=== PATIENT | male | born 1955 | race Caucasian/White ===

== ENCOUNTER 2018-03-18 13:58 | Observation (INO) ==
[2018-03-18] MEDS ORDERED: *HR* Labetalol 100 MG/20 ML MDV IVP ONE (14:40)
[2018-03-18 15:07] LABS: Basophils # 0.1 K/mcL (0.0-0.2); Basophils % 0.5 %; Eosinophils % 0.2 %; Hematocrit 43.5 % (37.5-50.1); Hemoglobin 14.9 g/dL (12.9-16.9); Immature Granulocytes % 0.4 % (0-4); Lymphocytes # 1.2 K/mcL (0.6-4.6); Lymphocytes % 10.6 %; Mean Corpuscular HGB Conc 34.3 g/dL (31.6-35.5); Mean Corpuscular Hemoglobin 33.6 pg (28.0-33.3); Monocytes # 0.8 K/mcL (0.0-1.3); Monocytes % 7.4 %; Neutrophils # 9.1 K/mcL (1.6-8.9); Platelet Count 234 K/mcL (140-400); Red Blood Count 4.44 M/mcL (4.19-5.50); Segmented Neutrophils % 80.9 %
[2018-03-18 15:15] LABS: Prothrombin Time 11.8 Seconds (9.4-12.1)
[2018-03-18 15:26] LABS: Calcium 9.3 mg/dL (8.6-10.3); Creatine Kinase 154 Units/L (30-223); Potassium 3.7 mEq/L (3.5-5.1)
--- NOTE | 2018-03-18 15:28 | Emergency Department Note ---
Disposition Clinical Impression: Hypertensive urgency, Dehydration, Acute kidney injury Disposition: Admitted As Inpatient Condition: Good Referrals: NONE,PCP [Primary Care Provider] - General Adult HPI - General Chief complaint: ED Headache Stated complaint: headache, nausea and emesis Time Seen by Provider: 03/18/18 14:06 Source: patient, family Mode of arrival: EMS Limitations: no limitations Nursing Notes Reviewed: Yes Vital Signs Reviewed: Yes - History of Present Illness HPI Narrative: Patient presents to the ED via EMS after an episode of becoming very hot, short of breath, sweating and possibly passing out at home. He had been out in the sun for approximately 4 hours watching his son work on a car. Son states he noticed that the patient's suddenly became very flushed, was sweating a lot and breathing heavy. He told him to go inside and cool off. Patient states he remembers going up to the house and laying down on the front porch. Patient's son states when he went to check on him he was no longer on the porch when he went inside he found the patient lying on the living room floor. Patient states he vaguely remembers going inside the house. He does not think that he fell and there was no furniture out of place or other signs of a fall in the home that patient states the sequence of events from the time he was outside until EMS arrived are "like a dream". Patient's son states that the patient was awake and alert when he found him inside and was complaining of "tingling and cramping" all over his body. Patient states he did feel short of breath and that his entire body was in "one big cramp". He did not have any focal chest pain. Patient currently complained of a headache on the right posterior side of his head goes down into his neck. This is been intermittent over the last 5-7 days. He rates it currently an 8-9 out of 10 and describes it as a burning pain. He states he has also had blurry vision in his right eye over the past week. Patient's son states that his blood pressure has been extremely elevated over the past 1-2 weeks as well with readings as high as 200s systolic and 100s diastolic. Patient does have a known history of high blood pressure and is currently only on lisinopril that was last prescribed by a physician during an ED visit. He does not currently have a primary care doctor. He reports chronic numbness in his right hand that has been present for many years. He underwent cervical spine surgery in September of this year and has had intermittent neck pain and headaches since then. He has not had any new injury to his neck. He denies any new numbness, tingling or weakness in his arms or his legs. He did become nauseous and vomit once just prior to transport to the ED. - Related Data Home Medications Medication Instructions Recorded Confirmed Lisinopril [Zestril] 40 mg PO DAILY 10/05/17 03/18/18 Allopurinol [Zyloprim 100 MG] 100 mg PO DAILY 03/18/18 03/18/18 Allergies Allergy/AdvReac Type Severity Reaction Status Date / Time No Known Allergies Allergy Verified 10/05/17 09:01 Constitutional: Denies: fever, chills, weakness, weight change Eyes: Reports: vision change (blurry on right). Denies: eye pain, eye discharge ENT ED: Denies: ear pain, throat pain, dental pain, hearing loss, epistaxis, congestion, dysphagia Cardiovascular: Denies: chest pain, palpitations, dyspnea on exertion, edema, syncope Respiratory: Denies: cough, dyspnea, wheezes, hemoptysis, stridor Gastrointestinal: Denies: abdominal pain, nausea, vomiting, diarrhea, constipation, hematemesis, melena, hematochezia Genitourinary: Denies: urgency, dysuria, frequency, hematuria Musculoskeletal: Reports: neck pain (chronic). Denies: back pain, arthralgia, myalgia Integumentary: Denies: rash, abrasion, lesions Neurological: Reports: as per HPI, headache, numbness (chronic, R hand). Denies : weakness, paresthesias, confusion, abnormal gait, vertigo Psychiatric: Denies: anxiety, depression, suicidal thoughts, homicidal thoughts , auditory hallucinations, visual hallucinations Endocrine: Denies: fatigue Hematological/Lymphatic: Denies: easy bleeding, easy bruising Allergic/Immunologic: Denies: facial swelling, urticaria Past Medical History - Past Medical History Medical history: Reports: arthritis, hypertension, other Surgical history: Reports: orthopedic, other Psychiatric history: Reports: no psych history - Social History Smoking Status: Current every day smoker Smokeless Tobacco Status: No Alcohol use: Reports: none Drug use: Reports: none Physical Exam - General Limitations: no limitations General appearance: alert, in no apparent distress - Head Head exam: atraumatic, normocephalic, normal inspection - Eye Eye exam: Present: normal appearance, PERRL, EOMI - ENT ENT exam: normal exam, normal oropharynx, mucous membranes moist - Neck Neck exam: Present: normal inspection, full ROM, trachea midline - Chest Chest inspection: Present: normal inspection, symmetric chest wall rise - Respiratory Respiratory exam: Present: normal lung sounds bilaterally - Cardiovascular Cardiovascular exam: Present: regular rate, normal rhythm, normal heart sounds - Abdominal Exam Abdominal exam: Present: soft, Non-Tender. Absent: tenderness, distention, guarding, rebound, rigidity - Extremities Exam Extremities exam: Present: normal inspection, full ROM, normal capillary refill. Absent: tenderness, pedal edema - Back Exam Back exam: Present: normal inspection, full ROM. Absent: tenderness - Neurological Exam Neurological exam: Present: alert, oriented X3, CN II-XII intact. Absent: motor sensory deficit - Expanded Neurological Exam Speech: Present: fluid speech Cerebellar function: finger to nose: Normal Motor strength - LUE: 5/5 Motor strength - RUE: 5/5 Motor strength - LLE: 5/5 Motor strength - RLE: 5/5 Sensory exam upper extremity: light touch: Normal Sensory exam lower extremity: light touch: Normal Coma Scale Eye Opening: Spontaneous Coma Scale Motor Response: Obeys Commands Coma Scale Verbal Response: Oriented Coma Scale Total: 15 - Psychiatric Psychiatric exam: Present: normal affect, normal mood - Skin Skin exam: Present: warm, dry, intact, normal color Course Course Narrative: Patient presents to the ED after an episode of becoming very flushed, diaphoretic and lightheaded after spending several hours outdoors. He may have experienced an unwitnessed syncopal event. He has had a chronic headache and neck pain as well recently with significantly high uncontrolled blood pressures. Physical exam including detailed neurologic exam is unremarkable but symptoms are concerning for hypertensive urgency versus emergency versus syncope versus heat exhaustion versus less likely ACS. EKG on arrival was a sinus rhythm with occasional PVCs. There are no acute changes compared to his last EKG of September 2017. We will give IV fluid bolus while checking labs as well as CT of head and neck given his report of pain, blurry vision and hypertension. We will give a dose of labetalol for his acute hypertension. - Reevaluation(s) Reevaluation #1: Laboratory stay showed a nonspecific leukocytosis. Electrolytes are normal. Creatinine is elevated from his last laboratory studies several months ago. Troponin and CK are both normal. CT scan of cervical spine shows only degenerative and postsurgical changes. CT of the head shows no acute abnormalities. Blood pressure did respond mildly to the labetalol but still remains elevated. Given his acute kidney injury and persistent hypertension I feel that he would benefit from admission for continued IV fluids as well as antihypertensive medication adjustments to gain better control of his hypertension. He would also benefit from continued monitoring for any recurrent symptoms that may reflect ACS or hypertensive sequelae. Discussed all results with patient and family and my recommendation for admission. Patient is agreeable. I spoke to the hospitalist on-call, Dr. Fry who has agreed to accept the patient. He will be started on oral metoprolol for blood pressure control. Time: 15:50 Vital Signs Temperature 99.1 F 03/18/18 14:00 Pulse Rate 73 03/18/18 14:00 Respiratory Rate 18 03/18/18 14:00 Blood Pressure 169/92 03/18/18 14:00 O2 Sat by Pulse Oximetry 98 03/18/18 14:00 Temperature 99.1 F 03/18/18 14:00 Pulse Rate 71 03/18/18 15:29 Respiratory Rate 18 03/18/18 15:29 Blood Pressure 187/93 03/18/18 15:29 O2 Sat by Pulse Oximetry 97 03/18/18 15:29 Oxygen Delivery Oxygen Delivery Room Air Medical Decision Making - Differential Diagnosis heat exhaustion, dehydration, syncope, hypertensive urgency - Medical Records Medical records reviewed: Yes I reviewed the patient's medical records. - Lab Data Lab results reviewed: Yes I reviewed the patient's lab results. Result diagrams: 03/18/18 15:00 03/18/18 15:00 Lab Results 03/18/18 03/18/18 03/18/18 Range/Units 15:00 15:00 15:00 WBC 11.3 H (4.3-11.1) K/mcL RBC 4.44 (4.19-5.50) M/mcL Hgb 14.9 (12.9-16.9) g/dL Hct 43.5 (37.5-50.1) % MCV 98.0 (83.0-100.0) fL MCH 33.6 H (28.0-33.3) pg MCHC 34.3 (31.6-35.5) g/dL RDW 13.0 (11.5-14.5) % Plt Count 234 (140-400) K/mcL MPV 10.0 (9.4-12.4) fL Immature Gran % 0.4 (0-4) % Seg Neutrophils % 80.9 % Lymphocytes % 10.6 % Monocytes % 7.4 % Eosinophils % 0.2 % Basophils % 0.5 % Neutrophils # 9.1 H (1.6-8.9) K/mcL Lymphocytes # 1.2 (0.6-4.6) K/mcL Monocytes # 0.8 (0.0-1.3) K/mcL Eosinophils # 0.0 (0.0-0.6) K/mcL Basophils # 0.1 (0.0-0.2) K/mcL PT 11.8 (9.4-12.1) Seconds INR 1.0 Sodium 138 (136-145) mEq/L Potassium 3.7 (3.5-5.1) mEq/L Chloride 107 (98-107) mEq/L Carbon Dioxide 23 (23-29) mEq/L BUN 14 (8-23) mg/dL Creatinine 1.52 H (0.70-1.30) mg/dL Est GFR ( Amer) 56 L (> 60) Est GFR (Non-Af Amer) 47 L (> 60) BUN/Creatinine Ratio 9 (6-26) Glucose 99 (70-105) mg/dL Calculated Osmolality 287 (280-300) Calcium 9.3 (8.6-10.3) mg/dL Creatine Kinase (30-223) Units/L Troponin I (< 0.04) ng/mL 03/18/18 Range/Units 15:00 WBC (4.3-11.1) K/mcL RBC (4.19-5.50) M/mcL Hgb (12.9-16.9) g/dL Hct (37.5-50.1) % MCV (83.0-100.0) fL MCH (28.0-33.3) pg MCHC (31.6-35.5) g/dL RDW (11.5-14.5) % Plt Count (140-400) K/mcL MPV (9.4-12.4) fL Immature Gran % (0-4) % Seg Neutrophils % % Lymphocytes % % Monocytes % % Eosinophils % % Basophils % % Neutrophils # (1.6-8.9) K/mcL Lymphocytes # (0.6-4.6) K/mcL Monocytes # (0.0-1.3) K/mcL Eosinophils # (0.0-0.6) K/mcL Basophils # (0.0-0.2) K/mcL PT (9.4-12.1) Seconds INR Sodium (136-145) mEq/L Potassium (3.5-5.1) mEq/L Chloride (98-107) mEq/L Carbon Dioxide (23-29) mEq/L BUN (8-23) mg/dL Creatinine (0.70-1.30) mg/dL Est GFR ( Amer) (> 60) Est GFR (Non-Af Amer) (> 60) BUN/Creatinine Ratio (6-26) Glucose (70-105) mg/dL Calculated Osmolality (280-300) Calcium (8.6-10.3) mg/dL Creatine Kinase 154 (30-223) Units/L Troponin I < 0.03 (< 0.04) ng/mL - Radiology Data Radiology results reviewed: Yes I reviewed the patient's radiology results. ITS Impressions Cervical Spine CT 03/18/18 14:39 IMPRESSION: No acute abnormality of the cervical spine. D/ / Andres Doherty MD / Andres Doherty MD Interpreting Provider: Andres Doherty MD Head CT 03/18/18 14:39 IMPRESSION: No acute intracranial abnormality. D/ / Andres Doherty MD / Andres Doherty MD Interpreting Provider: Andres Doherty MD - EKG Data EKG #1 EKG shows normal: sinus rhythm Rate: normal Rhythm: NSR, PVC's Hubbard/QRS: normal Interpretation: no acute changes, unchanged when compared to prior tracing (date ) (09/30/17), nonspecific ST-T wave changes
[2018-03-18 15:32] LABS: Troponin I < 0.03 ng/mL (< 0.04)
[2018-03-18] MEDS ORDERED: Naloxone 0.4 MG/ML INJ IVP PRN ×2 (15:54→16:55)
[2018-03-18] MEDS ORDERED: traMADol 50 MG TABLET PO PRN (15:54)
[2018-03-18] MEDS ORDERED: Acetaminophen 325 MG TABLET PO PRN (15:54)
[2018-03-18] MEDS ORDERED: Metoprolol XL (24 HR) Succ 50 MG TAB.ER.24H PO SCH (16:00)
[2018-03-18] MEDS ORDERED: 0.9 % Sodium Chloride 1,000 ML IVC SCH (16:00)
[2018-03-18] MEDS: 0.9 % Sodium Chloride 1,000 ML IVC SCH ×2 (17:18→23:36)
[2018-03-18] MEDS: traMADol 50 MG TABLET PO PRN ×2 (17:27→23:35)
[2018-03-18] MEDS: Acetaminophen 325 MG TABLET PO PRN (22:06)
[2018-03-19 05:30] LABS: BUN/Creatinine Ratio 10 (6-26); Blood Urea Nitrogen 12 mg/dL (8-23); Calcium 8.7 mg/dL (8.6-10.3); Carbon Dioxide 24 mEq/L (23-29); Chloride 109 mEq/L (98-107); Glucose 87 mg/dL (70-105); Osmolality,Calculated 289 (280-300); Potassium 3.7 mEq/L (3.5-5.1); Sodium 140 mEq/L (136-145); eGFR For African Americans > 60 (> 60); eGFR For Non-African Americans > 60 (> 60)
[2018-03-19 05:35] LABS: Basophils % 0.6 %; Eosinophils # 0.1 K/mcL (0.0-0.6); Eosinophils % 1.8 %; Hematocrit 42.6 % (37.5-50.1); Hemoglobin 14.4 g/dL (12.9-16.9); Immature Granulocytes % 0.3 % (0-4); Lymphocytes # 2.4 K/mcL (0.6-4.6); Lymphocytes % 36.1 %; Mean Corpuscular HGB Conc 33.8 g/dL (31.6-35.5); Mean Corpuscular Hemoglobin 33.9 pg (28.0-33.3); Mean Corpuscular Volume 100.2 fL (83.0-100.0); Mean Platelet Volume 10.5 fL (9.4-12.4); Monocytes # 0.6 K/mcL (0.0-1.3); Monocytes % 9.2 %; Neutrophils # 3.4 K/mcL (1.6-8.9); Platelet Count 221 K/mcL (140-400); Red Blood Count 4.25 M/mcL (4.19-5.50); Red Cell Distribution Width 13.3 % (11.5-14.5)
[2018-03-19] MEDS: traMADol 50 MG TABLET PO PRN ×2 (07:49→13:36)
[2018-03-19] MEDS ORDERED: Metoprolol XL (24 HR) Succ 50 MG TAB.ER.24H PO SCH (09:00)
[2018-03-19] MEDS ORDERED: 0.9 % Sodium Chloride 1,000 ML IVC SCH (11:04)
[2018-03-19] MEDS ORDERED: Lisinopril 20 MG TABLET PO SCH (11:15)
[2018-03-19] MEDS: 0.9 % Sodium Chloride 1,000 ML IVC SCH (11:55)
[2018-03-19 15:47] VITALS: BP 228/123
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
[2018-03-19] MEDS ORDERED: Metoprolol XL (24 HR) Succ 50 MG TAB.ER.24H PO ONE (16:04)
[2018-03-19] MEDS ORDERED: hydroCHLOROthiazide 25 MG TABLET PO ONE (16:06)
--- NOTE | 2018-03-19 16:14 | Discharge Summary ---
- NOTES TO OUTPATIENT PROVIDER Notes to Outpatient Provider: HCAP - He will try to get PCP Date of Encounter: 03/19/18 Time of Encounter: 16:10 - Discharge Diagnosis (1) Heat exhaustion Priority: Primary Status: Acute Comments: Improved Qualifiers: Encounter type: initial encounter Qualified Code(s): T67.5XXA - Heat exhaustion, unspecified, initial encounter (2) Hypertensive urgency Priority: Primary Status: Acute Comments: And blood pressure coming down encouraged him to have a lifestyle change and take medicines routinely (3) Dehydration Priority: Primary Status: Acute Comments: Drink about 64 ounces water day (4) Acute kidney injury Priority: Primary Status: Acute Comments: Stay hydrated (5) Headache Priority: Primary Status: Acute Comments: Keep blood pressure better controlled Qualifiers: Headache type: unspecified Headache chronicity pattern: episodic headache Intractability: not intractable Qualified Code(s): R51 - Headache (6) Syncope Priority: Primary Status: Acute Comments: Better keep blood pressure controlled or he might have a stroke Qualifiers: Syncope type: heat syncope Encounter type: initial encounter Qualified Code(s): T67.1XXA - Heat syncope, initial encounter (7) Cigarette smoker Priority: Secondary Status: Chronic Comments: Needs to quit (8) Caffeine dependence Priority: Secondary Status: Chronic (9) Polyarthritis Priority: Secondary Status: Chronic Comments: Stable (10) Gout Priority: Secondary Status: Chronic Comments: We will write for prescription for allopurinol Qualifiers: Gout site: unspecified site Gout etiology: unspecified cause Chronicity: chronic Presence of tophus: without tophus Qualified Code(s): M1A.9XX0 - Chronic gout, unspecified, without tophus (tophi) Hospital course: Mr. Roberts is a 62 year old male was admitted for hypertensive urgency, headache, dehydration, acute kidney injury, syncope, heat exhaustion and Dr. Pettit saw him in the ER and started IVG. His symptoms improved. He reports episodic headache but not at the time of discharge his nausea vomiting improved he had no chest pain or shortness of breath. Long discussion about lifestyle including use of caffeine Gatorade is cigarette smoking taking an aspirin a day. Answers questions addresses concerns his a look into primary care provider who has takes HCAP. He did many details. Discharge discussed with: patient Time spent discussing smoking cessation with patient: 3 to 10 minutes - Time Spent with Patient Total time spent providing and/or coordinating discharge services: Greater than 30 minutes - Discharge Medications Prescriptions: Allopurinol [Zyloprim 100 MG] 100 mg PO DAILY #30 tablet Lisinopril-HCTZ 20-12.5 [Prinzide 20-12.5] 2 each PO DAILY #60 tablet Metoprolol [Lopressor] 50 mg PO BID #60 tablet Home Medications: Allopurinol [Zyloprim 100 MG] 100 mg PO DAILY #30 tablet 03/19/18 [Rx] Lisinopril-HCTZ 20-12.5 [Prinzide 20-12.5] 2 each PO DAILY #60 tablet 03/19/18 [ Rx] Metoprolol [Lopressor] 50 mg PO BID #60 tablet 03/19/18 [Rx] Allergies/Adverse Reactions: 3 Allergy/AdvReac Type Severity Reaction Status Date / Time No Known Allergies Allergy Verified 10/05/17 09:01 Date of admission: 03/18/18 16:06 Primary care physician: PCP NONE Discharging clinician: Derik Fry Anticipated date of discharge: 03/19/18 - Constitutional Vitals: Temp Pulse Resp BP Pulse Ox 98 F 59 16 228/123 96 03/19/18 14:00 03/19/18 14:00 03/19/18 14:00 03/19/18 14:00 03/19/18 14:00 Exam: General: Alert and oriented, no acute distress Lungs: Clear to auscultation bilaterally without wheezing or crackles Heart: Regular rate and rythms without murmer or rubs Abdomen: Soft, nontender, Extremities: no edema, redness - Patient Status Disposition: Home, Self-Care Condition: Good Functional capacity at discharge: independent ambulation Overall status at discharge: patient is back to baseline - Discharge Instructions Follow Up With: NONE,PCP [Primary Care Provider] - 1 week - Diet and Activity Activity: increase activity as tolerated Diet: low fat, low cholesterol - VTE Reasons for not Prescribing Prophylaxis: Treatment not Indicated - Low risk for VTE
[2018-03-19] MEDS ORDERED: Aspirin 81 MG TAB.CHEW PO ONE (16:15)
[2018-03-19] MEDS: Acetaminophen 325 MG TABLET PO PRN (16:31)
[2018-03-20] MEDS ORDERED: hydroCHLOROthiazide 25 MG TABLET PO SCH (09:00)
[2018-03-20] MEDS ORDERED: Lisinopril 20 MG TABLET PO SCH (09:00)
--- NOTE | 2018-03-21 17:42 | Electrocardiograph Report ---
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
== END 2018-03-19 16:44 | disposition home or self-care (01) ==
LOC: EMEROOPIK 13:58 → INPPIK 13:58
PROVIDERS: ADMIT Internal Medicine; ATTEND Internal Medicine